=== PATIENT | female | born 1950 | race Caucasian/White ===

== ENCOUNTER 2024-04-24 21:03 | Emergency (ER) | payer OTHER, MEDICAID, SELFPAY ==
[2024-04-24 21:09] VITALS: BP 142/82; PULSE 100; RESP 20; TEMP 36.7; O2SAT 92; BMI 32.9
[2024-04-24 21:26] VITALS: PULSE 116; RESP 21; O2SAT 95
--- NOTE | 2024-04-24 21:37 | XR_ITS ---
Examination: AP chest single view Technique one AP portable upright chest single view Exam date and time: April 24, 2024 at 2150 hrs. Comparison March 28, 2023 Indications: Shortness of breath today. Findings: Mild prominence left ventricle No pneumonia or pulmonary edema Moderate osteopenia Impression: No pneumonia or pulmonary edema
--- NOTE | 2024-04-24 21:38 | EDNOTE_ITS ---
ED General RME/HPI General Chief complaint: Shortness of Breath/Dyspnea Stated complaint: SOB Time Seen by Provider: 04/24/24 21:37 Arrival date/time: 04/24/24 21:03 CC: Chest pain with shortness HPI for 24 hours patient states she has had left anterior chest pain, with shortness of breath patient smokes approximately half a pack a day. Patient is on Wellbutrin no other medications has no other significant past medical history. Patient states no other members around her are ill. Onset 24 hours ago persistent nature progressive increase in severity. Patient is interviewed with her eyes closed secondary to pain noted to be tachycardic EMS report tachycardia but no hypertension on transport. Initial oxygen saturations were 91% on room air patient placed on 4 L that where she improved to 96%. Patient is an anxious and uncomfortable appearing. EMS reports asking the nurse in charge of the patient stated they do not know when she got medication for pain they do not want know what the medication was is the patient is new admission. They do not know when she arrived, and that the patient was weak and altered stating they were the same . This was explained as being different by EMS, at which time the daughter of the patient came up and stated that she is declining . Related Data Home Medications ?Medication ?Instructions ?Recorded ?Confirmed loratadine 10 mg tablet 10 mg PO QDAY 07/22/22 10/28/22 multivitamin 1 tab PO QAM 07/22/22 10/28/22 semaglutide 0.25 mg or 0.5 mg (2 0.25 mg subcut QWEEK 07/22/22 10/28/22 mg/3 mL) subcutaneous pen injector (Ozempic) venlafaxine 37.5 mg 37.5 mg PO QDAY 07/22/22 10/28/22 capsule,extended release 24 hr (Effexor XR) gabapentin 100 mg capsule 100 mg PO TID 10/28/22 10/28/22 Allergies Allergy/AdvReac Type Severity Reaction Status Date / Time niacin Allergy Mild Hives Verified 10/31/22 12:30 Sulfa (Sulfonamide Allergy Verified 03/29/23 00:17 Antibiotics) Review of Systems Review of Systems Narrative Review of Systems: GEN: No fever, no chills, no weight loss EYES: No discharge, no visual changes, no pain HEENT: No ear pain, no congestion, no sore throat PULM: + shortness of breath, no cough, no congestion CV: + chest pain, no dyspnea on exertion, no palpitations GI: No nausea, no vomiting, no diarrhea, no pain, no constipation : No frequency, no urgency, no dysuria MUSC/SKEL: No joint pain, no back pain SKIN: No rash PSYCH: No hallucinations, no depression HEME/LYMPH: No easy bleeding or bruising tendencies NEURO: No weakness, no headache Past Medical History Past Medical History NEUROLOGIC: Negative Neurological Disorders or Seizures CARDIAC: Negative Cardiac Disorders or Congestive Heart Failure RESPIRATORY: Negative Chronic Obstructive Pulmonary Disease (COPD) or Asthma GASTROINTESTINAL: Positive Gastrointestinal Disorders and Obesity GENITOURINARY: Negative Genitourinary Disorders or Renal Disease REPRODUCTIVE: Positive Previous Pregnancies MUSCULOSKELETAL: Positive Musculoskeletal Disorders, Arthritis and Carpal Tunnel Syndrome ENT: Positive Cataracts ENDOCRINE: Positive Hyperthyroidism; Negative Endocrine Disorders, Diabetes Mellitus Type 1 or Diabetes Mellitus Type 2 HEMATOLOGIC: Positive Blood Disorders and Anemia; Negative Sickle Cell Disease PSYCHO/SOCIAL: Positive Anxiety OTHER HISTORY: Positive Shingles, Chicken Pox, Measles and Mumps; Negative Autoimmune Disease, Blood Transfusions, Blood Transfusion Reaction, Anesthesia Reactions, MRSA or Cancer Family History FAMILY HISTORY: Negative Family Psychiatric Problems, Family Respiratory Disorders, Family Cardiac Disorders, Family Gastrointestinal Problems, Family Cancer, Family Surgery or Family Anesthesia Reaction Surgical History SURGICAL: Positive Tubal Ligation; Negative Cardiac Surgery or Endocrine Surgery Social History SMOKING STATUS: Former smoker SUBSTANCE USE: does not use ED Exam Narrative Physical exam: [General: Moderate discomfort but not in any acute distress Head normocephalic HEENT: Within acceptable limits Neck is supple nontender Chest equal chest rise nontender to palpation Respiratory: Clear to auscultation no wheezes crackles or rubs CV: Rate rhythm is regular no murmurs rubs or clicks Abdomen is soft nontender no masses positive bowel sounds all 4 quadrants Back: No CVA tenderness no spinous process tenderness from cervical spine thoracic and lumbar spine Skin: Intact no petechiae rash induration ulceration or crepitus Extremities: Moving all extremity against resistance cap refill less than 2 seconds neurosensory intact Neuro: Awake alert oriented x3 Glascow coma 15 no focal deficits] Course Course Course Narrative: At 2146 nursing notified me the patient has a core temp of 101.6. Quality Measures VTE prophylaxis Orders Category Date Time Status Bedside COVID-19 Antigen Test NOW Care 04/24/24 22:00 Completed Bedside Influenza A&B Antigen Test NOW Care 04/24/24 21:41 Completed Supervisor Network Control Operators STAT Care 04/24/24 21:44 Completed Continuous Pulse Oximetry STAT Care 04/24/24 21:44 Completed EKG (ED ONLY) *Do not use* NOW Care 04/24/24 21:37 Completed In and Out Catheter X1PRN Care 04/24/24 21:44 Completed Insert IV NOW Care 04/24/24 21:44 Completed NPO STAT Care 04/24/24 21:44 Completed Strict Intake and Output Routine Care 04/24/24 21:44 Ordered EKG (ED Only) Stat Exams 04/24/24 21:37 Ordered XR chest 1V Stat Exams 04/24/24 21:37 Completed B-Type Natriuretic Peptide Stat Lab 04/24/24 21:50 Completed Blood Culture (Lab) Stat Lab 04/24/24 21:49 Results CBC Stat Lab 04/24/24 21:50 Completed Comprehensive Metabolic Panel Stat Lab 04/24/24 21:50 Completed D-Dimer Stat Lab 04/24/24 21:50 Completed Drug Screen,Urine Stat Lab 04/24/24 23:30 Completed LDH (Lactate Dehydrogenase) Stat Lab 04/24/24 21:50 Completed Lactate (Lactic Acid) Stat Lab 04/24/24 21:50 Completed Lipase Stat Lab 04/24/24 21:50 Completed Magnesium Stat Lab 04/24/24 21:50 Completed Partial Thromboplastin Time Stat Lab 04/24/24 21:50 Completed Phosphorous Stat Lab 04/24/24 21:50 Completed Procalcitonin Stat Lab 04/24/24 21:50 Completed Prothrombin Time with INR Stat Lab 04/24/24 21:50 Completed Troponin I Stat Lab 04/24/24 21:50 Completed Troponin I Stat Lab 04/25/24 03:55 Completed Urinalysis Stat Lab 04/24/24 23:30 Completed Urine Culture Stat Lab 04/24/24 23:30 Received Acetaminophen Tab [Tylenol ES Tab] Med 04/24/24 22:05 Discontinued 1,000 mg PO X1 ONE Oxygen Delivery NOW RT 04/24/24 21:44 Completed Vital Signs Vital signs: Vital Signs Temperature 98.1 F 04/24/24 21:09 Pulse Rate 100 04/24/24 21:09 Respiratory Rate 20 04/24/24 21:09 Blood Pressure 142/82 H 04/24/24 21:09 Pulse Oximetry (%) 92 L 04/24/24 21:09 Oxygen Delivery Method Room Air 04/24/24 21:09 [facility] Patient data External records reviewed:: [facility] previous records and EMS form Clinical information provided by:: patient and EMS Social determinants that could affect healthcare access:: none Patient has the following chronic illnesses:: Methamphetamine abuse How is presenting disease/condition affected by chronic disease/condition?: u neffected by Evaluation data The following diagnostics were reviewed and interpreted by me:: lab results and radiology exam(s) Lab and/or radiology exams considered but not ordered:: Urine shows methamphetamine positive all other labs are unremarkable Interpretation Summary: Amphetamine abuse wheezing Medications Medications considered but not ordered:: None Medication administrations:: Medication Administration History Discontinued Medications Acetaminophen (Acetaminophen 500 Mg Tablet) 1,000 mg PO X1 ONE Stop: 04/24/24 22:06 Last Admin: 04/24/24 22:16 Dose: 1,000 mg Documented By: EF None Consultations Consultation(s) initiated? (list below): No Diagnosis Differential Diagnosis ED Complaint MDM: ACS RI pneumonia Most likely diagnosis given after review of the tests above:: Methamphetamine abuse Admission Indicated Admission indicated?: not indicated Explain why admission is indicated or not indicated:: Stable for discharge Admission Request Was there a request for admission?: No Disposition Plan Disposition Plan: Discharge Discharge Attestation Discharge Attestation: The patient and all family members were given an opportunity to ask questions and understood the discharge instructions. Discharge instructions specifically effects, indications for sooner follow up or return to the emergency department, and the expected course of current diagnosis. Patient condition: Stable Medical Decision Making Differential Diagnosis Differential Diagnosis: ACS RI pneumonia Lab Data 04/24/24 21:50 04/24/24 21:50 Labs: Lab Results 04/24/24 04/24/24 04/25/24 Range/Units 21:50 23:30 03:55 WBC 6.6 (3.6-11.0) Thou/mm3 RBC 4.77 (4.00-5.20) Miln/mm3 Hgb 14.4 (12.0-16.0) g/dL Hct 42.2 (36.0-46.0) % MCV 89 (80-100) fL MCH 30.2 (25.0-35.0) pg MCHC 34.1 (31.0-37.0) g/dl RDW Std Deviation 40.2 (36.4-46.3) fL Plt Count 239 (140-440) Thou/mm3 Neut % (Auto) 76 (37-80) % Lymph % (Auto) 15 (10-50) % Johnston % (Auto) 7 (0-12) % Eos % (Auto) 0 (0-10) % Baso % (Auto) 0 (0-2.5) % Neut # (Auto) 5.1 (1.8-7.7) Thou/mm3 Lymph # (Auto) 1.0 (1.0-4.8) Thou/mm3 Johnston # (Auto) 0.5 (0.0-0.8) Thou/mm3 Eos # (Auto) 0.0 (0.0-0.5) Thou/mm3 Baso # (Auto) 0.0 (0.0-0.2) Thou/mm3 Immature Gran # (Auto) 0.03 H (0.00-0.00) Thou/mm3 Absolute Nucleated RBC 0.00 (0.00-0.00) Thou/mm3 Immature Gran % 1 H (0-0) % Nucleated RBC % 0 (0) /100 WBC PT 10.9 (9.0-12.2) Seconds INR 1.0 (0.9-1.3) APTT 28.8 (22.0-36.0) Seconds D-Dimer 330 (<600) ng/mL Sodium 134 L (136-145) mMol/L Potassium 3.7 (3.4-5.1) mMol/L Chloride 100 (98-107) mMol/L Carbon Dioxide 22.6 (20.0-31.0) mMol/L Anion Gap 11 (7-16) BUN 9 (9-23) mg/dL Creatinine 1.0 (0.6-1.3) mg/dL Estim Creat Clear Calc 49.6 L (>60) mL/min eGFR 59 L (60 - ) See Note BUN/Creatinine Ratio 9 L (12-20) Ratio Glucose 114 H (74-106) mg/dL Calculated Osmolality 267 L (275-295) Lactic Acid 1.8 (0.4-2.0) mMol/L Calcium 9.1 (8.3-10.6) mg/dL Corrected Calcium 9.1 (8.5-10.1) mg/dL Phosphorus 2.6 (2.4-5.1) mg/dL Magnesium 2.1 (1.6-2.6) mg/dL Total Bilirubin 0.6 (0.3-1.2) mg/dL AST 17 (0-34) U/L ALT 11 (10-49) U/L Alkaline Phosphatase 113 (46-116) U/L Lactate Dehydrogenase 235 (120-246) U/L Troponin I < 0.002 < 0.002 (0.0-0.045) ng/mL B-Natriuretic Peptide < 20 (0-100) pg/mL Total Protein 7.1 (5.7-8.2) gm/dL Albumin 4.7 (3.4-4.8) gm/dL Globulin 2.4 (2.3-3.5) gm/dL Albumin/Globulin Ratio 2.0 (1.2-2.2) Lipase 23 (12-53) U/L Procalcitonin 0.07 (0.0-0.49) ng/ml Ur Collection Type Clean Catch Urine Color Yellow (Lt Yel-Yel) Urine Clarity Turbid A (Clear/Hazy) Urine pH 6.0 (5.0-7.0) Ur Specific Marina 1.020 (1.001-1.035) Urine Protein Trace (Neg - Trace) Urine Glucose (UA) Negative (Negative) Urine Ketones 1+ A (Negative) Urine Blood 3+ A (Negative) Urine Nitrite Negative (Negative) Urine Bilirubin Negative (Negative) Urine Urobilinogen (Auto) Negative (0.0-1.0) mg/dL Ur Leukocyte Esterase Positive (Negative) Urine RBC 7 H (0-3) /hpf Urine WBC 11 H (0-5) /hpf Ur Squamous Epith Cells 15 H (0-5) /hpf Urine Bacteria 1+ A (None) Hyaline Casts < 1 (0-1) /hpf Urine Yeast (Budding) Present A (None) Urine Sperm Absent (None) Urine Opiates Screen Negative (Negative) Urine Fentanyl Screen Negative (Negative) Ur Barbiturates Screen Negative (Negative) U Amphetamin/Meth Scrn Positive A (Negative) U Benzodiazepines Scrn Negative (Negative) U Cocaine Metab Screen Negative (Negative) U Marijuana (THC) Screen Negative (Negative) Discharge Plan Plan Patient Disposition: HOME (Self Care) Patient condition on transfer: Stable Prescriptions/Referrals Prescriptions/Med Rec: No Action multivitamin Tablet 1 tab PO QAM venlafaxine [Effexor XR] 37.5 mg Capsule,Extended Release 24hr 37.5 mg PO QDAY loratadine 10 mg Tablet 10 mg PO QDAY Ozempic 0.25 mg or 0.5 mg (2 mg/3 mL) Pen Injector 0.25 mg SUBCUT QWEEK Rx Instructions: for 4 weeks gabapentin 100 mg Capsule 100 mg PO TID Referrals: David Brito [Primary Care Provider] - In 1 week Problem List Clinical Impression: Methamphetamine abuse, Wheezing Patient/Caregiver Discharge Instructions Education Materials: ED Bronchitis with Wheezing (Adult), ED Drug Abuse Additional Instructions: Return for worsening symptoms, or any other concerns. Print Language: [place] Stand Alone Forms: [employer] Award Info., Patient Portal Info Letter
[2024-04-24 21:44] VITALS: PULSE 99; RESP 26; RESP 96
[2024-04-24 21:57] VITALS: BP 143/83; PULSE 99; RESP 26; TEMP 38.7; O2SAT 96
[2024-04-24 22:09] LABS: Lactate (Lactic Acid) 1.8 mMol/L (0.4-2.0)
[2024-04-24 22:16] VITALS: TEMP 38.7
[2024-04-24] MEDS: ACETAMINOPHEN 500 MG TABLET 1000 MG PO (22:16)
[2024-04-24 22:18] LABS: Basophils % (Auto) 0 % (0-2.5); Eosinophils % (Auto) 0 % (0-10); Hematocrit 42.2 % (36.0-46.0); Hemoglobin 14.4 g/dL (12.0-16.0); Immature Granulocytes % (Auto) 1 % (0-0); Immature Granulocytes Auto 0.03 Thou/mm3 (0.00-0.00); Lymphocytes % (Auto) 15 % (10-50); Mean Corpuscular HGB Conc 34.1 g/dl (31.0-37.0); Mean Corpuscular Hemoglobin 30.2 pg (25.0-35.0); Mean Corpuscular Volume 89 fL (80-100); Monocytes # (Auto) 0.5 Thou/mm3 (0.0-0.8); Monocytes % (Auto) 7 % (0-12); Neutrophils # (Auto) 5.1 Thou/mm3 (1.8-7.7); Neutrophils % (Auto) 76 % (37-80); Nucleated Red Blood Cell % 0 /100 WBC (0); Platelet Count 239 Thou/mm3 (140-440); RDW Standard Deviation 40.2 fL (36.4-46.3); Red Blood Count 4.77 Miln/mm3 (4.00-5.20); White Blood Count 6.6 Thou/mm3 (3.6-11.0)
[2024-04-24 22:41] LABS: B-Type Natriuretic Peptide < 20 pg/mL (0-100)
[2024-04-24 22:57] LABS: Partial Thromboplastin Time 28.8 Seconds (22.0-36.0); Prothrombin Time 10.9 Seconds (9.0-12.2)
--- NOTE | 2024-04-24 23:00 | PD.EDADDENDU ---
Emergency Room Addendum Addendum Narrative: 2300: Care assumed from Renny Johnson NP. Past medical, surgical, social and family history reviewed. Vitals and home medications reviewed. Results and treatment plan discussed. I will assume the care of the patient at this time and will follow the patient, pending labs. Please refer to the emergency department record for history and examination from initial visit. CBC, CMP, initial troponin, and D-Dimer are all within normal limits. CTA of the chest not indicated at this time. Repeat troponin ordered. 0504: Repeat troponin is within normal limits. Patient is stable to be discharged home.
[2024-04-24 23:09] LABS: D-Dimer 330 ng/mL (<600)
[2024-04-24 23:37] LABS: Collection Type, Urine Clean Catch
[2024-04-24 23:47] LABS: Alanine Aminotransferase 11 U/L (10-49); Albumin, Serum 4.7 gm/dL (3.4-4.8); Alkaline Phosphatase 113 U/L (46-116); Anion Gap 11 (7-16); Aspartate Amino Transferase 17 U/L (0-34); BUN/Creatinine Ratio 9 Ratio (12-20); Bilirubin,Total 0.6 mg/dL (0.3-1.2); Blood Urea Nitrogen 9 mg/dL (9-23); Calcium 9.1 mg/dL (8.3-10.6); Calcium (Corrected) 9.1 mg/dL (8.5-10.1); Carbon Dioxide 22.6 mMol/L (20.0-31.0); Chloride 100 mMol/L (98-107); Estimated Creatinine Clearance 49.6 mL/min (>60); Globulin 2.4 gm/dL (2.3-3.5); Glucose 114 mg/dL (74-106); LDH (Lactate Dehydrogenase) 235 U/L (120-246); Lipase 23 U/L (12-53); Magnesium 2.1 mg/dL (1.6-2.6); Osmolality,Calculated 267 (275-295); Phosphorous 2.6 mg/dL (2.4-5.1); Potassium 3.7 mMol/L (3.4-5.1); Procalcitonin 0.07 ng/ml (0.0-0.49); Sodium 134 mMol/L (136-145); Total Protein 7.1 gm/dL (5.7-8.2); Troponin I < 0.002 ng/mL (0.0-0.045); eGFR 59 See Note
[2024-04-25 00:16] VITALS: BP 142/80; PULSE 88; RESP 18; TEMP 36.8; O2SAT 98
[2024-04-25 00:17] VITALS: TEMP 36.8
[2024-04-25 01:09] LABS: Bacteria,Urine 1+; Bilirubin,Urine Negative (Negative); Blood,Urine 3+ (Negative); Budding Yeast,Urine Present; Clarity,Urine Turbid (Clear/Hazy); Color,Urine Yellow (Lt Yel-Yel); Glucose, Urine Negative (Negative); Hyaline Casts,Urine < 1 /hpf (0-1); Ketones,Urine 1+ (Negative); Leukocyte Esterase,Urine Positive (Negative); Nitrite,Urine Negative (Negative); Protein,Urine Trace (Neg - Trace); RBC,Urine 7 /hpf (0-3); Squamous Epithelial Cell,Urine 15 /hpf (0-5); Urobilinogen,Urine Negative mg/dL (0.0-1.0); WBC,Urine 11 /hpf (0-5)
[2024-04-25 01:16] LABS: Sperm,Urine Absent
[2024-04-25 01:33] LABS: Amphetamine/Methamp Scrn,U Positive (Negative); Barbiturate Screen,Urine Negative (Negative); Benzodiazepines Screen,Urine Negative (Negative); Benzoylecgonine Screen, Ur Negative (Negative); Fentanyl Screen,Urine Negative (Negative); Opiate Screen,Urine Negative (Negative); THC Screen,Urine Negative (Negative)
[2024-04-25 04:01] VITALS: BP 119/81; PULSE 86; RESP 19; TEMP 36.7; O2SAT 100
[2024-04-25 04:39] LABS: Troponin I < 0.002 ng/mL (0.0-0.045)
[2024-04-25 05:25] VITALS: BP 106/83; PULSE 88; RESP 24; O2SAT 98
== END 2024-04-25 05:25 | disposition home or self-care (01) ==
PROVIDERS: Registered Nurse General Practice; Emergency Provider Emergency Medicine; PCP Internal Medicine
DX: F15.10 Other stimulant abuse, uncomplicated (principal); R06.2 Wheezing; R00.0 Tachycardia, unspecified
CPT/HCPCS: 36415; 71045; 80053; 80307; 81001; 83605; 83615; 83690; 83735; 83880; 84100; 84145; 84484; 85025; 85379; 85610; 85730; 87040; 87077; 87086; 87186; 87400; 87811; 93005; 99285; A9270

== ENCOUNTER → 2024-06-24 | Outpatient (CLI) | payer MEDICARE, MEDICAID, SELFPAY ==
--- NOTE | 2024-06-24 09:50 | XR_ITS ---
Examination: Lumbar spine, 5 views Technique: Lumbar spine AP, lateral, coned lateral lower lumbar spine, bilateral obliques 5 views Exam date and time: June 24, 2024 1036 hours INDICATIONS: Patient fell June 08, 2024 with injury to the lower back, lower back pain. FINDINGS: Moderate osteopenia Lumbar levoscoliosis 20 degrees Diffuse moderate to advanced facet arthropathy Grade 1 anterolisthesis L4 on L5 Diffuse [id number] lumbar degenerative disc disease, most prominent L4-L5, L5-S1 IMPRESSION: Diffuse [id number] lumbar degenerative disc disease
== END | disposition home or self-care (01) ==
PROVIDERS: PCP Internal Medicine; Referring Provider Internal Medicine; Visit Provider Internal Medicine
DX: M51.369 Other intervertebral disc degeneration, lumbar region without mention of lumbar back pain or lower extremity pain (principal)
CPT/HCPCS: 72110